=== PATIENT | female | born 1995 | race Caucasian/White ===

== ENCOUNTER 2016-09-24 03:28 | Emergency (ER) | payer MEDICAID ==
[~2016-09-24] VITALS: Ht 152.4 cm; Wt 70.5 kg
[~2016-09-24 03:28] MED LIST: HYDR-3498 PO; IBUP-1542 PO
[2016-09-24 03:31] VITALS: Ht 152.4 cm; Wt 70.5 kg
[2016-09-24] MEDS ORDERED: HYDR-3011 PO (03:57)
[2016-09-24] MEDS ORDERED: CYCL-319 PO (03:57)
[2016-09-24] MEDS ORDERED: IBUP-1542 PO (03:57)
[2016-09-24 04:16] LABS: URINE BLOOD (Dip) POC Negative (NEGATIVE)
--- NOTE | 2016-09-24 04:18 | ERD ---
ER Documentation Chief Complaint Date/Time DATE: 09/24/16 TIME: 04:16 Chief Complaint lower back pain,abd itchiness,denies abd pain HPI 21-year-old female presents here in emergency department for complaints of left lower back pain that started 2 days ago. Patient described the pain as sharp pain, 6/10 scale, is worse upon movement. Patient complaining of itching in the abdomen area and all over the body at times. Patient denies any rash. Patient denies any fever or chills. Patient denies hematuria or dysuria. Patient describes the left lower back pain as sharp pain, 6/10 scale, is worse upon movement and radiates to the left hip area times. Patient does a lot of bending at work. ROS All systems reviewed and are negative except as per history of present illness. Medications Home Meds Active Scripts Cyclobenzaprine Hcl* (Cyclobenzaprine Hcl*) 10 Mg Tablet, 10 MG PO TID, #15 TAB Prov:JABIER OROSCO ICER MACHINE OPERATOR 09/24/16 Ibuprofen* (Motrin*) 600 Mg Tab, 600 MG PO Q6H Y for PAIN AND OR ELEVATED TEMP, #30 TAB Prov:JABIER OROSCO ICER MACHINE OPERATOR 09/24/16 Hydroxyzine Hcl* (Hydroxyzine Hcl*) 25 Mg Tablet, 25 MG PO Q8H Y for ITCHING, # 30 TAB Prov:JABIER OROSCO ICER MACHINE OPERATOR 09/24/16 Hydrocodone Bit-Acetaminophen* ([place]*) 5-325 Mg Tab, 1 TAB PO Q6 Y for PAIN, # 20 TAB Prov:MELISSADORYS LICONA C 10/06/15 Ibuprofen* (Motrin*) 600 Mg Tab, 600 MG PO Q6, #30 TAB Prov:MELISSADORYS C 10/06/15 Allergies Allergies: Coded Allergies: No Known Drug Allergy (Verified Allergy, Mild, 10/06/15) PMhx/Soc Medical and Surgical Hx: pt denies Medical Hx, pt denies Surgical Hx History of Surgery: No Anesthesia Reaction: No Hx Neurological Disorder: No Hx Respiratory Disorders: No Hx Cardiac Disorders: No Hx Psychiatric Problems: No Hx Miscellaneous Medical Probl: No Hx Alcohol Use: No Hx Substance Use: No Hx Tobacco Use: No Smoking Status: Never smoker FmHx Family History: No coronary disease, No diabetes, No other Physical Exam Vitals Vital Signs Date Time Temp Pulse Resp B/P Pulse Ox O2 Delivery O2 Flow Rate FiO2 09/24/16 03:31 98.0 66 18 131/82 100 Physical Exam GENERAL: The patient is well developed and appropriate for usual state of health, in no apparent distress. CHEST: Clear to auscultation bilaterally. There are no rales, wheezes or rhonchi. HEART: Regular rate and rhythm. No murmurs, clicks, rubs or gallops. No S3 or S4. ABDOMEN: Soft, nontender and nondistended. Good bowel sounds. No rebound or guarding. No gross peritonitis. No gross organomegaly or masses. No Sarabia sign or McBurney point tenderness. BACK: No midline or flank tenderness. Muscle spasms noted in the paraspinal aspect of the lumbar spine, able to do full range of motion without any restriction. EXTREMITIES: Equal pulses bilaterally. There is no peripheral clubbing, cyanosis or edema. No focal swelling or erythema. Full range of motion. Grossly neurovascularly intact. NEURO: Alert and oriented. Cranial nerves 2-12 intact. Motor strength in all 4 extremities with 5/5 strength. Sensation grossly intact. Normal speech and gait. SKIN: There is no apparent rash or petechia. The skin is warm and dry. HEMATOLOGIC AND LYMPHATIC: There is no evidence of excessive bruising or lymphedema. No gross cervical, axillary, or inguinal lymphadenopathy. Results 24 hrs Laboratory Tests Test 09/24/16 04:18 Bedside Urine pH (LAB) 5.0 Bedside Urine Protein (LAB) Negative Bedside Urine Glucose (UA) Negative Bedside Urine Ketones (LAB) Negative Bedside Urine Blood Negative Bedside Urine Nitrite (LAB) Negative Bedside Urine Leukocyte Esterase (L Negative Procedures/MDM Medical Decision Making: Patient's pain is most likely consistent with a back muscle strain. There is no suspicion for neurovascular compromise. Patient has intact sensation and circulation of the affected extremity or distal extremity. There is low suspicion for septic arthritis. Patient does not have any fever. Etiology exam is not indicated at this time. No suspicion for cauda equina syndrome, acute bacterial infection. Patient's itching most likely is from dry skin, not visualized rash at this time. Disposition: Home. Patient is given prescription for ibuprofen for abdominal pain, Flexeril for muscle spasms, hydroxyzine for itching. Patient was advised to avoid heavy lifting, apply warm compresses on affected area. Patient was advised that if symptoms are worse, numbness, tingling, high fever, unable to move joint, worsening symptoms, to return to emergency department immediately. Otherwise, patient is advised to follow up with the primary care doctor in 5-7 days for reevaluation of symptoms. Departure Diagnosis: Primary Impression: Back pain Back pain location: low back pain Chronicity: acute Back pain laterality: left Sciatica presence: without sciatica Qualified Code: M54.5 - Acute left- sided low back pain without sciatica Additional Impression: Itching Condition: Stable Patient Instructions: Back Pain (Acute Or Chronic) JABIER OROSCO NP September 24, 2016 04:18
== END 2016-09-24 04:30 | disposition home or self-care (01) ==
LOC: FTE 03:28
DX: M54.5 Low back pain (principal); L29.9 Pruritus, unspecified
CPT/HCPCS: 81003; Z7502; 99283

== ENCOUNTER 2016-11-25 14:33 | Emergency (ER) | payer SELFPAY ==
[~2016-11-25] VITALS: Ht 157.5 cm; Wt 71.0 kg
[~2016-11-25 14:33] MED LIST changes: +CYCL-319 PO; +HYDR-3011 PO
[2016-11-25 14:51] VITALS: Ht 157.5 cm; Wt 71.0 kg
[2016-11-25] MEDS ORDERED: SOD CHLORIDE 0.9% 1,000 ML IV STA (16:30)
[2016-11-25] MEDS ORDERED: KETOROLAC 30 MG INJ IV STA (16:30)
[2016-11-25 17:04] LABS: BASOPHILS % 0.4 % (0.0-2.0); EOSINOPHILS # 0.1 10^3/ul (0.0-0.5); EOSINOPHILS % 0.6 % (0.0-7.0); HEMATOCRIT 41.6 % (37.0-47.0); HEMOGLOBIN 14.1 g/dl (12.0-16.0); LYMPHOCYTES # 1.9 10^3/ul (0.8-2.9); LYMPHOCYTES % 22.1 % (15.0-51.0); MEAN CORPUSCULAR HEMOGLOBIN 30.1 pg (29.0-33.0); MEAN CORPUSCULAR HGB CONC 33.9 g/dl (32.0-37.0); MEAN CORPUSCULAR VOLUME 88.9 fl (82.0-101.0); MEAN PLATELET VOLUME 9.8 fl (7.4-10.4); MONOCYTE # 0.5 10^3/ul (0.3-0.9); MONOCYTES % 5.9 % (0.0-11.0); NEUTROPHILS % 70.6 % (39.0-77.0); PLATELET COUNT 288 10^3/UL (140-415); RED BLOOD COUNT 4.68 10^6/ul (4.20-5.40); RED CELL DISTRIBUTION WIDTH 12.4 % (11.5-14.5); WHITE BLOOD COUNT 8.5 10^3/ul (4.8-10.8)
[2016-11-25 17:17] LABS: ADD UMIC NO; UR ASCORBIC ACID NEGATIVE (NEGATIVE); UR BILIRUBIN (Dip) NEGATIVE (NEGATIVE); UR BLOOD (Dip) NEGATIVE (NEGATIVE); UR CLARITY SLIGHTLY CLOUDY (CLEAR); UR COLOR YELLOW (YELLOW); UR GLUCOSE (Dip) NEGATIVE (NEGATIVE); UR KETONES (Dip) NEGATIVE (NEGATIVE); UR LEUKOCYTE ESTERASE (Dip) NEGATIVE Leu/ul (NEGATIVE); UR MUCUS FEW /HPF (NONE SEEN); UR NITRITE (Dip) NEGATIVE (NEGATIVE); UR RBC 2 /HPF (0-5); UR SPECIFIC GRAVITY (Dip) 1.028 (1.003-1.030); UR TOTAL PROTEIN (Dip) NEGATIVE (NEGATIVE); UR UROBILINOGEN (Dip) NEGATIVE (NEGATIVE)
[2016-11-25 17:24] LABS: ALBUMIN 4.4 g/dl (3.3-4.9); ALBUMIN/GLOBULIN RATIO 1.12; BILIRUBIN,INDIRECT 0.3 mg/dl (0-1.1); BILIRUBIN,TOTAL 0.3 mg/dl (0.2-1.3); CALCIUM 8.9 mg/dl (8.4-10.2); POTASSIUM 4.1 mmol/L (3.5-5.1); TOTAL PROTEIN 8.3 g/dl (6.1-8.1)
[2016-11-25 17:36] LABS: CREATININE 0.58 mg/dl (0.44-1.00)
--- NOTE | 2016-11-25 19:00 | ERD ---
ER Documentation Chief Complaint Date/Time DATE: 11/25/16 TIME: 18:58 Chief Complaint Pt with SERRANO since this morning. HPI This is a very pleasant 21-year-old female that presents to the emergency department complaining of a bilateral pulsating frontal headache for the past 24 hours. The patient indicates she has had a similar headache in the past but it has not lasted this long. She took NyQuil as she was feeling tired. When she awoke she stated the headache had not improved. She denies any fever shaking or chills. She has no neck pain. She states this is not the worst headache of her life. She denied any changes in vision and has not experienced any nausea. She denies any abdominal pain. She has had no frequency urgency or dysuria. She denies any shortness of breath at rest or exertion. She denies any blunt or penetrating trauma to the head chest or abdomen. She denies any recent sick contacts. She has had no rashes. Her immunizations are up-to-date. ROS All systems reviewed and are negative except as per history of present illness. Medications Home Meds Active Scripts Ibuprofen* (Motrin*) 800 Mg Tab, 800 MG PO Q6H Y for PAIN AND OR ELEVATED TEMP, #30 TAB Prov:BOUCHRA GONZALEZ 11/25/16 Cyclobenzaprine Hcl* (Cyclobenzaprine Hcl*) 10 Mg Tablet, 10 MG PO TID, #15 TAB Prov:JABIER OROSCO NP 09/24/16 Ibuprofen* (Motrin*) 600 Mg Tab, 600 MG PO Q6H Y for PAIN AND OR ELEVATED TEMP, #30 TAB Prov:JABIER OROSCO NP 09/24/16 Hydroxyzine Hcl* (Hydroxyzine Hcl*) 25 Mg Tablet, 25 MG PO Q8H Y for ITCHING, # 30 TAB Prov:JABIER OROSCO NP 09/24/16 Hydrocodone Bit-Acetaminophen* ([place]*) 5-325 Mg Tab, 1 TAB PO Q6 Y for PAIN, # 20 TAB Prov:MLEISSANATHANAELDORYS C 10/06/15 Ibuprofen* (Motrin*) 600 Mg Tab, 600 MG PO Q6, #30 TAB Prov:MELISASDORYS C 10/06/15 Allergies Allergies: Coded Allergies: No Known Drug Allergy (Verified Allergy, Mild, 10/06/15) PMhx/Soc Medical and Surgical Hx: pt denies Medical Hx, pt denies Surgical Hx History of Surgery: No Anesthesia Reaction: No Hx Neurological Disorder: No Hx Respiratory Disorders: No Hx Cardiac Disorders: No Hx Psychiatric Problems: No Hx Miscellaneous Medical Probl: No Hx Alcohol Use: No Hx Substance Use: No Hx Tobacco Use: No Physical Exam Vitals Vital Signs Date Time Temp Pulse Resp B/P Pulse Ox O2 Delivery O2 Flow Rate FiO2 11/25/16 20:53 71 18 114/73 99 Room Air 11/25/16 14:51 98.7 76 16 139/77 100 Physical Exam Constitutional:Well-developed. Well-nourished. HEENT:Normocephalic. Atraumatic.Pupils were equal round reactive to light. Dry mucous membranes.No tonsillar exudates. Funduscopy exam showed sharp optic disc bilaterally venous pulsations are present. Neck: No nuchal rigidity. No lymphadenopathy. No posterior cervical spine tenderness or step-offs. Respiratory: Not using accessory muscles of respiration.Lungs were clear to auscultation bilaterally. No rhonchi. No rales. No wheezing. Cardiovascular: Regular rate regular rhythm.No murmurs. No rubs were appreciated.S1, S2 normal. Distal pulses are palpable 2+ bilaterally. GI: Abdomen was soft. Nontender. Non Distended. No pulsatile abdominal masses or bruits. No rebound. No guarding. Bowel sounds were present and normal. Muscle skeletal: Full range of motion of both the upper and lower extremities bilaterally.Normal muscle tone.No assymetrical calf tenderness or swelling. Skin: No petechia, no purpura. No lesions on the palms or the soles of the feet. No maculopapular rash. NEURO: Patient was alert, awake, orientated x3.No facial droop. Gait observed and normal with no ataxia.Speech had regular rate and rhythm. No focal neurological deficits. Result Diagram: 11/25/16 1645 11/25/16 1645 Results 24 hrs Laboratory Tests Test 11/25/16 16:45 White Blood Count 8.510^3/ul Red Blood Count 4.6810^6/ul Hemoglobin 14.1g/dl Hematocrit 41.6% Mean Corpuscular Volume 88.9fl Mean Corpuscular Hemoglobin 30.1pg Mean Corpuscular Hemoglobin Concent 33.9g/dl Red Cell Distribution Width 12.4% Platelet Count 16807^3/UL Mean Platelet Volume 9.8fl Neutrophils % 70.6% Lymphocytes % 22.1% Monocytes % 5.9% Eosinophils % 0.6% Basophils % 0.4% Nucleated Red Blood Cells % 0.0/100WBC Neutrophils # 6.010^3/ul Lymphocytes # 1.910^3/ul Monocytes # 0.510^3/ul Eosinophils # 0.110^3/ul Basophils # 0.010^3/ul Nucleated Red Blood Cells # 0.010^3/ul Urine Color YELLOW Urine Clarity SLIGHTLY CLOUDY Urine pH 7.0 Urine Specific [place] 1.028 Urine Ketones NEGATIVEmg/dL Urine Nitrite NEGATIVEmg/dL Urine Bilirubin NEGATIVEmg/dL Urine Urobilinogen NEGATIVEmg/dL Urine Leukocyte Esterase NEGATIVELeu/ul Urine Microscopic RBC 2/HPF Urine Microscopic WBC 1/HPF Urine Mucus FEW/HPF Urine Hemoglobin NEGATIVEmg/dL Urine Glucose NEGATIVEmg/dL Urine Total Protein NEGATIVEmg/dl Sodium Level 143mmol/L Potassium Level 4.1mmol/L Chloride Level 103mmol/L Carbon Dioxide Level 25mmol/L Anion Gap 19 Blood Urea Nitrogen 10mg/dl Creatinine 0.58mg/dl Glucose Level 80mg/dl Calcium Level 8.9mg/dl Total Bilirubin 0.3mg/dl Direct Bilirubin 0.00mg/dl Indirect Bilirubin 0.3mg/dl Aspartate Amino Transf (AST/SGOT) 38IU/L Alanine Aminotransferase (ALT/SGPT) 61IU/L Alkaline Phosphatase 88IU/L Total Protein 8.3g/dl Albumin 4.4g/dl Globulin 3.90g/dl Albumin/Globulin Ratio 1.12 Amylase Level 72U/L Lipase 143U/L Current Medications Medications (Trade) Dose Ordered Sig/Wes Route PRN Reason Start Time Stop Time Status Last Admin Dose Admin Sodium Chloride (NS) 1,000 ml @ 1,000 mls/hr Q1H STAT IV 11/25/16 16:30 11/25/16 17:29 DC 11/25/16 16:56 Ketorolac Tromethamine (Toradol) 30 mg ONCE STAT IV 11/25/16 16:30 11/25/16 16:31 DC 11/25/16 16:58 Procedures/MDM The patient presented to the emergency department with an acute single headache that presented within hours of onset my differential diagnosis included but was not limited to meningitis, SAH, intracerebral hemorrhage, hypertensive encephalopathy, cranial artery dissection, cerebral venous sinus thrombosis, traumatic, acute sinusitis. The patient has no ocular symptoms to suggest temporal neuritis, acute narrow-angle glaucoma or pituitary apoplexy. The patient did not appear to have a toxic or metabolic etiology such as fever, hypoglycemia, high-altitude disease or carbon monoxide poisoning. This was not the patients worse headache of their life. The patient had a complete neurologic and fundoscopic exam performed by myself that was normal with no focal neurological deficits or retinal hemorrhage. The patient stated this headache was not severe or distinct from other headaches and the history with the physical exam findings did not likely suggest SAH. Therefore, I did not feel it was clinically necessary to perform a lumbar puncture and CSF analysis. The patient received IV Toradol morphine Zofran and IV fluids. Observation Note: Time: 4 hours Family Hx: No Hypertension Evaluation: Multiple exams showed improving symptoms and no evidence of meningitis or subarachnoid hemorrhage. She states she felt comfortable being discharged home. She was given a prescription for analgesic medication which included Motrin. The patient was discharged home in fair condition. They were instructed to return to the emergency department at any time if there was any worsening of their condition. The patient stated they would follow up with their PCP in the next 24-48 hours to initiate a suitable medication regimen under the care of their PCP as well as to allow their PCP to monitor any drug reactions. The patient was discharged home with prescriptions after they gave informed consent to the new medication. They were also fully informed by myself on the adverse effects and adverse drug interactions in order to provide adequate safeguards to prevent possible adverse reactions to medications. Departure Diagnosis: Primary Impression: Migraine headache Migraine type: unspecified Status migrainosus presence: without status migrainosus Intractability: not intractable Qualified Code: G43.909 - Migraine without status migrainosus, not intractable, unspecified migraine type Condition: BOUCHRA Lozano Nov 25, 2016 19:00
--- NOTE | 2016-11-25 20:20 | RADRPT ---
PROCEDURE: CT Brain without. CLINICAL INDICATION: Headache TECHNIQUE: A CT of the brain was performed on multidetector high-resolution CT scanner utilizing a xial sections from the skull base through the vertex without contrast. The scan was reviewed in sof t tissue brain and high frequency resolution bone algorithm windows. Images were reviewed on a high -resolution PACS workstation. One or more the following does reduction techniques were utilized: Aut omated exposure control, adjustment of the mA/ or kV according to patient's size, or use of iterativ e reconstruction technique. The exam CTDI = 45.01 mGy and the DLP = 630.2 mGy-cm. COMPARISON: None available. FINDINGS: The ventricles and sulci are age-appropriate. There is no intracranial hemorrhage, mass effect or mi dline shift. No abnormal intra-axial or extra-axial fluid collections are seen. The jacobson/white delta er differentiation is preserved. No acute skull abnormality is noted. The visualized paranasal sinus es are essentially clear. IMPRESSION: 1. No acute intracranial hemorrhage, transcortical infarction or mass effect. RPTAT: HFN .Marisol Álvarez MD, MD Date Time Electronically viewed and signed by .Marisol Álvarez MD, MD on 11/25/2016 20:20 .N/
[2016-11-25] MEDS ORDERED: IBUP800T25 PO (20:45)
[2016-11-25 20:53] VITALS: BP 114/73; PULSE 71; RESP 18
== END 2016-11-25 20:54 | disposition home or self-care (01) ==
LOC: FTE 14:33
DX: G43.909 Migraine, unspecified, not intractable, without status migrainosus (principal)
CPT/HCPCS: 70450; 80053; 81001; 82150; 83690; 85025; 87086; 96374; 99285; J1885; J7030; 81003

== ENCOUNTER 2017-01-06 16:22 | Emergency (ER) | payer SELFPAY ==
[~2017-01-06] VITALS: Ht 162.6 cm; Wt 72.5 kg
[~2017-01-06 16:22] MED LIST changes: +IBUP800T25 PO
[2017-01-06 16:41] VITALS: Ht 162.6 cm; Wt 72.5 kg
[2017-01-06 17:42] LABS: URINE BLOOD (Dip) POC 1+ (NEGATIVE)
[2017-01-06] MEDS ORDERED: ACETAMINOPHEN 500 MG TAB PO STA (17:58)
[2017-01-06] MEDS ORDERED: LIDOCAINE/MYLANTA 40 ML BTL PO ONE (18:00)
--- NOTE | 2017-01-06 18:48 | RADRPT ---
PROCEDURE: Renal Ultrasound CLINICAL INDICATION: Flank pain TECHNIQUE: Evaluation of the kidneys and bladder was performed as well with jacobson scale and color and Doppler evaluation using a curved array transducer. The images were reviewed on a high-resoluti on PACS workstation. COMPARISON: No prior studies are available for comparison. FINDINGS: The kidneys are well visualized. No renal masses or calcifications are seen. There is no hydronephr osis. The right kidney measures 10.0 cm in length. The left kidney measures 10.2 cm in length. No perinephric fluid collection is seen. The bladder is decompressed and collapsed. IMPRESSION: 1. Unremarkable renal ultrasound. RPTAT: HJBF .Stefan Samaniego MD, MD Date Time Electronically viewed and signed by .Stefan Samaniego MD, MD on 01/06/2017 18:48 .B/
[2017-01-06] MEDS ORDERED: ACET500C5 PO (18:54)
[2017-01-06] MEDS ORDERED: FAMO-96 PO (18:54)
--- NOTE | 2017-01-06 18:57 | ERD ---
ER Documentation Chief Complaint Date/Time DATE: 01/06/17 TIME: 18:56 Chief Complaint LT SIDE PAIN X2DAYS, VAG BLEEDING X2 DAYS, LMP 12/21/16,? HPI This 21-year-old female presents with epigastric pain for the last 2 days. She has had some scant vaginal bleeding. Last menstrual period was 2 weeks ago. She denies . But is uncertain. She denies fevers, vomiting, nausea. She denies urinary complaints. ROS All systems reviewed and are negative except as per history of present illness. Medications Home Meds Active Scripts Famotidine* (Pepcid*) 20 Mg Tablet, 20 MG PO BID for 15 Days, #30 TAB Prov:YOUNG DRISCOLL MD 01/06/17 Acetaminophen* (Tylophen*) 500 Mg Capsule, 1 CAP PO Q6H Y for PAIN AND OR ELEVATED TEMP, #20 CAP Prov:YOUNG DRISCOLL MD 01/06/17 Ibuprofen* (Motrin*) 800 Mg Tab, 800 MG PO Q6H Y for PAIN AND OR ELEVATED TEMP, #30 TAB Prov:BOUCHRA GONZALEZ 11/25/16 Cyclobenzaprine Hcl* (Cyclobenzaprine Hcl*) 10 Mg Tablet, 10 MG PO TID, #15 TAB Prov:JABIER OROSCO NP 09/24/16 Ibuprofen* (Motrin*) 600 Mg Tab, 600 MG PO Q6H Y for PAIN AND OR ELEVATED TEMP, #30 TAB Prov:JABIER OROSCO NP 09/24/16 Hydroxyzine Hcl* (Hydroxyzine Hcl*) 25 Mg Tablet, 25 MG PO Q8H Y for ITCHING, # 30 TAB Prov:JABIER OROSCO NP 09/24/16 Hydrocodone Bit-Acetaminophen* ([place]*) 5-325 Mg Tab, 1 TAB PO Q6 Y for PAIN, # 20 TAB Prov:DORYS TORRES 10/06/15 Ibuprofen* (Motrin*) 600 Mg Tab, 600 MG PO Q6, #30 TAB Prov:MELISSADORYS LICONA C 10/06/15 Allergies Allergies: Coded Allergies: No Known Drug Allergy (Verified Allergy, Mild, 10/06/15) PMhx/Soc Medical and Surgical Hx: pt denies Medical Hx, pt denies Surgical Hx History of Surgery: No Anesthesia Reaction: No Hx Neurological Disorder: No Hx Respiratory Disorders: No Hx Cardiac Disorders: No Hx Psychiatric Problems: No Hx Miscellaneous Medical Probl: No Hx Alcohol Use: No Hx Substance Use: No Hx Tobacco Use: No Physical Exam Vitals Vital Signs Date Time Temp Pulse Resp B/P Pulse Ox O2 Delivery O2 Flow Rate FiO2 01/06/17 16:41 98.2 75 18 142/79 98 Physical Exam Const: []Alert, not ill-appearing. Head: Atraumatic Eyes: Normal Conjunctiva ENT: Normal External Ears, Nose and Mouth. Neck: Full range of motion..~ No meningismus. Resp: Clear to auscultation bilaterally Cardio: Regular rate and rhythm, no murmurs Abd: Soft,Minimal epigastric tenderness. Possibly very slight left flank pain. No tenderness at McBurney's point no Sarabia sign. non distended. Normal bowel sounds Skin: No petechiae or rashes Back: No midline or flank tenderness Ext: No cyanosis, or edema Neur: Awake and alert Psych: Normal Mood and Affect Results 24 hrs Laboratory Tests Test 01/06/17 17:48 Bedside Urine pH (LAB) 8.0 Bedside Urine Protein (LAB) Negative Bedside Urine Glucose (UA) Negative Bedside Urine Ketones (LAB) Negative Bedside Urine Blood 1+ Bedside Urine Nitrite (LAB) Negative Bedside Urine Leukocyte Esterase (L Negative Current Medications Medications (Trade) Dose Ordered Sig/Wes Route PRN Reason Start Time Stop Time Status Last Admin Dose Admin Acetaminophen (Tylenol Tab) 500 mg ONCE STAT PO 01/06/17 17:58 01/06/17 18:01 DC 01/06/17 18:15 Miscellaneous Medication (Gi Cocktail (2)) 40 ml ONCE ONCE PO 01/06/17 18:00 01/06/17 18:01 DC 01/06/17 18:15 Procedures/MDM Patient was given Tylenol GI cocktail. HCG is negative. Urine shows 1+ hemoglobin without leukocytes, nitrites or glucose. Renal ultrasound shows no hydronephrosis stones or acute abnormalities. Patient felt better after observation treatment. Patient has epigastric pain of uncertain etiology without current signs or symptoms to suggest hepatobiliary disease, appendicitis , pyelonephritis, signs did not suggest pneumonia or additional causes of presenting complaints. She will be treated with Pepcid and Tylenol and further observation at home. The patient was stable with no new complaints during the ER course. Clinically, there is no current evidence to suggest meningitis, sepsis, acute abdomen, pneumonia, acute coronary syndrome, pulmonary embolism, or any other emergent condition appearing to require further evaluation or hospitalization. The patient should certainly return for any new or worsening symptoms per the aftercare instructions. They should otherwise follow-up with her primary care doctor for reevaluation this week. Departure Diagnosis: Primary Impression: Abdominal pain Abdominal location: epigastric Qualified Code: R10.13 - Epigastric pain Condition: Stable Patient Instructions: Abdominal Pain, Gastritis (Adult) Referrals: NO PRIMARY,CARE PHYSICIAN (PCP) Additional Instructions: Examinations normal today. test negative. We will treat for gastritis. Recheck for fevers, vomiting, lower abdominal pain, new or worsening symptoms. YOUNG DRISCOLL MD Jan 06, 2017 18:57
[2017-01-06 19:46] VITALS: BP 138/71; PULSE 76; RESP 20; TEMP 98.2
== END 2017-01-06 19:46 | disposition home or self-care (01) ==
LOC: FTE 16:22
DX: R10.13 Epigastric pain (principal)
CPT/HCPCS: 76775; 81003

== ENCOUNTER 2017-08-01 20:35 | Outpatient (CLI) | END 2017-08-01 22:30 | disposition home or self-care (01) ==